=== PATIENT | female | born 1990 | race Caucasian/White ===

== ENCOUNTER 2019-11-21 08:00 | Inpatient (IN) | payer OTHER, SELFPAY ==
--- NOTE | 2019-11-18 17:45 | PCM.HPOB.BLA ---
- Problem List (1) 41 weeks gestation of Status: Acute (2) History of delivery Status: Acute History and Physical Date of Admission: 11/22/19 DATE OF SERVICE: November 18, 2019 ? PROBLEM:?history prior section, history macrosomia, 40 week gestation ? DIAGNOSIS:?as above ? PAST SURGICAL HISTORY:? PAST SURGICAL HISTORY PAST SURGICAL HISTORY Procedure Laterality Date ? DELIVERY ONLY ? ? ? I&D ABSC; COMPL OR MULTI ? ? ? Right hipo strep abcsess ? PAST SURGICAL HISTORY OF ? ? ? 2 left knee and 1 right knee surgery ? PAST SURGICAL HISTORY OF ? ? ? left ankle surgery ? TONSILLECTOMY HX ? ? ? PAST MEDICAL HISTORY:? PAST MEDICAL HISTORY PAST MEDICAL HISTORY Diagnosis Date ? Factor V Leiden (HCC) ? ? H/O cardiac arrhythmia ? ? when she runs only- has cardiac appt 05/13/2019 ? TB lung, latent ? ? Riframpin treatment completed 02/12/2019 ? SUBJECTIVE:?No ctx, vb, lof. Good FM ? SOCIAL HISTORY:? SOCIAL HISTORY Social History ? Tobacco Use ? Smoking status: Never Smoker ? Smokeless tobacco: Never Used Substance Use Topics ? Alcohol use: Not Currently ? Drug use: Not Currently ? ALLERGIES ALLERGIES No Known Allergies ? Current Outpatient Medications on File Prior to Visit Medication Sig ? METOPROLOL TARTRATE ORAL Take 25 mg by mouth. ? Wbkyhhqf-Dq-Xvd-Fe-FA ( VITAMIN) tab Take 1 tablet by mouth. No current facility-administered medications on file prior to visit.? ? OBJECTIVE: ? VITALS:? BP 102/68 ? Wt 241 lb 6.4 oz (109.5 kg) ? LMP 02/16/2019 (Exact Date) ? BMI 34.64 kg/m? ? HEENT: ?Normocephalic, atraumatic, Mucus membranes moist without lesions. ? NECK: ???Soft and Supple. ?No adenopathy , thyromegaly or bruits. ? SKIN: No lesions. ? CHEST: Clear to auscultation. ?No wheezes or rales. ?Good air exchange. ? HEART: Regular rate and rhythm ?No S3 or S4. ?No gallops or rubs. ? BACK: Nontender with no CVA tenderness. ? ABDOMEN: Soft, non-tender, non-distended, no masses, no hepatosplenomegaly. ? LOWER EXTREMITIES: There was no pitting edema, no palpable cords and no skin changes. ? ? ? ASSESSMENT:?Plan for repeat section at 41 wk gestation ? PLAN: 1) The rationale for the proposed surgery was discussed in addition to risks, benefits, and alternatives. ?General pre- and post-operative care was reviewed. ?Questions were answered. ?After discussion, the patient indicated a desire to proceed with the planned surgery. ? Mariam Snyder,?DO
[2019-11-21] VITALS (17 sets, daily range): BP systolic 99–118; BP diastolic 43–63; PULSE 52–87; RESP 14–18; TEMP 36.3–37.1; O2SAT 95–100; BMI 34.6
[2019-11-21] MEDS: Lactated Ringers 1,000 ML 999 ML IV (08:15)
[2019-11-21 08:44] LABS: Absolute Neutrophil Count 9.5 X10^3/uL (2.0-7.7); Basophil# 0.02 X10^3/uL; Basophil% 0.2 % (0-1); Eosinophil# 0.04 X10^3/uL; Eosinophils% 0.3 % (0-5); Hematocrit 29.6 % (37-47); Hemoglobin 9.7 g/dL (12.0-15.0); Lymphocyte % 15.8 % (19-41); Mean Corp Hgb Conc 32.8 g/dL (32-36); Mean Corpuscular Hgb 29.4 pg (27.0-32.0); Mean Corpuscular Volume 89.7 fL (81-99); Mean Platelet Vol. 10.6 fl (6.2-12.0); Monocyte# 0.35 X10^3/uL; Monocyte% 2.9 % (0-10); NRBC Flagged by Analyzer 0 % (0-5); Neutrophil # 9.52 X10^3/uL (2.7-7.7); Neutrophil % 79.2 % (47-70); Platelet Count 241 K/mm3 (150-450); RBC Distribution Width CV 13.3 % (11.6-14.6); RBC Distribution Width SD 43.3 fl (35.1-43.9)
[2019-11-21] MEDS: Acetaminophen 500 MG Tablet 1000 MG PO ×3 (09:10→21:51)
[2019-11-21] MEDS: Lactated Ringers 1,000 ML 150 ML IV (09:16)
[2019-11-21] MEDS: Sodium Citrate/Citric Acid 30 ML UDC PO (11:36)
[2019-11-21] MEDS: Cefazolin 2 GM in 0.9% Normal Saline 100 ML IV (11:42)
--- NOTE | 2019-11-21 12:23 | OP.PCM_ITS ---
Delivery Classification: Scheduled Final KATIANA: 11/16/19 Final KATIANA Source: US <20 weeks Gestational age: 40 Weeks and 5 Days manager women: Don Sherman Type of Anesthesia:: Spinal Special Medications: duramorph Implants Used: none Date of Procedure: 11/21/19 Pre-Operative Diagnosis: 40 w 5 days, previous Post-Operative Diagnosis: same Description of Procedure: The patient was taken to the operating room. She was prepped and draped in the dorsal supine position with a leftward tilt. A Pfannenstiel skin incision was made approximately 2 cm above the symphysis pubis and carried through to underlying layer fascia with the scalpel. The fascia was incised incised in the midline and extended laterally with the John scissors. The fascia was dissected off the rectus muscles with blunt and sharp dissection. The rectus muscles were in the midline and the peritoneum was entered bluntly. The peritoneal incision was stretched and the bladder blade was placed. The uterine incision was made in a low transverse fashion with the scalpel and extended superiorly and inferiorly with blunt dissection. The amniotic membranes were ruptured bluntly and clear amniotic fluid returned. The infant's head was brought to the incision in the flexed position and delivered without difficulty. The remainder of the was delivered with gentle traction and fundal pressure in the standard fashion. The mouth and nares were bulb suct ioned. The cord was clamped and cut as the was stimulated. Cord clamping was delayed. The infant was handed off to the waiting nursing staff. The placenta was delivered with fundal massage and gentle traction in the standard fashion. The uterus was exteriorized and cleared of all clots and debris. The cervix was dilated with a ring forcep. The uterine incision was closed with #1 Vicryl in a running locked fashion. A second layer of the same suture was used in an imbricating fashion. The incision was examined and was found to be hemostatic. The uterus was placed back into the peritoneal cavity and hemostasis was again confirmed. The rectus muscles were examined and any bleeding was Bovie cauterized. The surgical teams outer gloves were then changed. The parietal peritoneum and rectus muscles were closed en bloc with an 0 Vicryl running suture. The rectus fascia was examined and any bleeding was Bovie cauterized and the rectus fascia was closed with 1 Vicryl suture in a running standard fashion. The subcutaneous tissue was examining and any bleeding was Bovie cauterized. The subcutaneous tissue was reapproximated with 3-0 Vicryl suture. The skin was closed in a subcuticular fashion by the MARKLOGIC DEVELOPER with me present in the labor and delivery suite. I performed the remainder of the procedure with assistance. All sponge, lap, and needle counts were correct. The patient was taken to her room for recovery in a stable condition. Amniotic Membrane Rupture Type: Artificial Amniotic Fluid Description: Clear Placenta Disposition: [facility] Drain: Newman to straight drain Fluids Replaced: 1000 Cord Entanglement: None Cord Vessel Description: 3 Vessels Esitmated Blood Loss (ml): 800 Gender: Male - ESTEFANIA (1 minute): 8 (5 minute): 9 Delayed cord clamping: Yes Antibiotic Given: Ancef 2 grams IV x1 - Admit VTE Documentation VTE Present on Admission: No VTE Mechan Device Prophylaxis: SCD's VTE Pharm Prophylaxis ordered?: Yes
[2019-11-21] MEDS: Oxytocin 30 units/NS 500 ml 30 UNITS/500 ML IV.SOLN 167 UNITS IV (12:54)
[2019-11-21] MEDS: Lactated Ringers 1,000 ML 100 ML IV (16:03)
[2019-11-21] MEDS: 0.9% Saline Lock 10 ML Syringe IV (17:39)
[2019-11-21] MEDS: Ketorolac 30 MG/ML Syringe IV (17:39)
[2019-11-22] MEDS: Ketorolac 30 MG/ML Syringe IV ×3 (00:11→12:54)
[2019-11-22] MEDS: 0.9% Saline Lock 10 ML Syringe IV ×2 (00:11→06:22)
[2019-11-22] MEDS: Enoxaparin 40 MG/0.4 ML Syringe SC (00:11)
[2019-11-22 00:26] VITALS: BP 102/45; PULSE 59; RESP 16; TEMP 36.3; O2SAT 98
[2019-11-22] MEDS: Acetaminophen 500 MG Tablet 1000 MG PO ×3 (03:37→17:42)
[2019-11-22 03:38] VITALS: BP 101/43; PULSE 54; RESP 16; O2SAT 98
[2019-11-22 06:19] LABS: Hematocrit 28.5 % (37-47); Hemoglobin 9.2 g/dL (12.0-15.0); Mean Corp Hgb Conc 32.3 g/dL (32-36); Mean Corpuscular Hgb 29.3 pg (27.0-32.0); Mean Corpuscular Volume 90.8 fL (81-99); Mean Platelet Vol. 10.2 fl (6.2-12.0); Platelet Count 213 K/mm3 (150-450); RBC Distribution Width CV 13.4 % (11.6-14.6); RBC Distribution Width SD 43.4 fl (35.1-43.9); Red Blood Count 3.14 M/mm3 (4.2-5.4); White Blood Count 17.3 K/mm3 (4.4-11.0)
--- NOTE | 2019-11-22 08:25 | PCM.PN.OB ---
Subjective: Patient seen at bedside sitting up in chair at bedside. Feeling good. Ambulating and passing flatus. Lochia is mild. going well. Patient requesting discharge home today. - Physical Exam Vitals/I&O's: Vital Signs Temp Pulse Resp BP Pulse Ox 97.3 F L 54 L 16 101/43 L 98 11/22/19 00:26 11/22/19 03:38 11/22/19 03:38 11/22/19 03:38 11/22/19 03:38 Oxygen Delivery Method Room Air Weight: 241 lb 6.499 oz Body Mass Index (BMI) 34.6 Intake and Output for Last 24 Hours 11/20/19 11/21/19 11/22/19 23:59 23:59 23:59 Intake Total 2900 / 2900 Output Total 700 / 700 1700 / 1700 Balance 2200 / 2200 -1700 / -1700 General: Alert HEENT: Atraumatic Oral: Moist Mucosa Lungs: Normal air movement Cardiovascular: Regular rate Abdomen: Soft, Non Tender, Passing Flatus Extremities: No Calf Tenderness Skin: No rashes Neurological: Cranial nerves II-XII grossly intact Psych/Mental Status: Normal Affect Laboratory Results 11/21/19 08:15: WBC 12.0 H, RBC 3.30 L, Hgb 9.7 L, Hct 29.6 L, MCV 89.7, MCH 29.4, MCHC 32.8, RDW Std Deviation 43.3, RDW Coeff of Anand 13.3, Plt Count 241, MPV 10.6, Immature Gran % (Auto) 1.600 H, Neut % (Auto) 79.2 H, Lymph % (Auto) 15.8 L, Casey % (Auto) 2.9, Eos % (Auto) 0.3, Baso % (Auto) 0.2, Absolute Neuts (auto) 9.5 H, Absolute Lymphs (auto) 1.90, Nucleated RBC % 0 11/21/19 08:15: Blood Type O POSITIVE, Antibody Screen NEGATIVE 11/22/19 06:10: WBC 17.3 H, RBC 3.14 L, Hgb 9.2 L, Hct 28.5 L, MCV 90.8, MCH 29.3, MCHC 32.3, RDW Std Deviation 43.4, RDW Coeff of Anand 13.4, Plt Count 213, MPV 10.2 Current Medications Acetaminophen (Tylenol) 1,000 mg PO Q6H [facility] Last Admin: 11/22/19 03:37 Dose: 1,000 mg Documented by: Bisacodyl (Dulcolax) 10 mg RECTAL UD PRN PRN Reason: If no BM Diphenhydramine HCl (Benadryl) 25 mg PO Q6H PRN PRN PRN Reason: ITCHING Stop: 11/22/19 12:49 Enoxaparin Sodium (Lovenox) 40 mg SC DAILY@2200 [facility] Last Admin: 11/22/19 00:11 Dose: 40 mg Documented by: Hydrocortisone (Hytone) 1 applic TOPICAL TID PRN PRN; Protocol PRN Reason: Discomfort Lactated Ringer's () 1,000 mls @ 100 mls/hr IV .Q10H [facility] Last Admin: 11/21/19 22:36 Dose: Not Given Documented by: Naloxone HCl 4 mg/ Dextrose 504 mls @ 0 mls/hr IV .Q0M PRN; Protocol PRN Reason: Respiratory depression Naloxone HCl 4 mg/ Dextrose 504 mls @ 0 mls/hr IV .Q0M PRN; Protocol PRN Reason: To maintain Resp. rate >10 Ketorolac Tromethamine (Toradol (Bkc)) 30 mg IV Q6H [facility] Stop: 11/22/19 12:01 Last Admin: 11/22/19 06:18 Dose: 30 mg Documented by: Methylergonovine Maleate (Methergine) 0.2 mg IM X1 PRN PRN Reason: Uterine Atony Naloxone HCl (Narcan) 0.02 mg IV Q1M PRN PRN Reason: RR <10 and pt unresponsive Naloxone HCl (Narcan) 0.02 mg IV Q1M PRN PRN Reason: RR< 10 AND PT UNRESPONSIVE Naproxen (Naprosyn) 500 mg PO Q8H [facility] Ondansetron HCl (Zofran) 4 mg IV Q4H PRN PRN PRN Reason: Nausea Oxycodone HCl (Oxyir) 5 - 10 mg PO Q4H PRN PRN PRN Reason: Pain Score 4-10/10 Prochlorperazine Edisylate (Compazine Iv) 10 mg IV Q6H PRN PRN PRN Reason: NAUSEA Senna/Docusate Sodium (Senokot-S, Kelly-Colace) 0 tablet PO DAILY [facility] Simethicone (Mylicon) 80 mg PO PCHS PRN PRN Reason: Indigestion/stomach pain Sodium Chloride () 5 - 15 ml IV UD PRN PRN Reason: SALINE FLUSH Last Admin: 11/22/19 06:22 Dose: 15 ml Documented by: Medical Necessity - Tobacco Use Smoking Status: Never smoker Assessment/Plan All Active Problems 41 weeks gestation of (Acute) History of delivery (Acute) Post-op day 2 repeat c/s Pain control Routine care Anticipate discharge home
--- NOTE | 2019-11-22 08:32 | DCINST_ITS ---
Discharge Diet: No Restrictions Discharge Activity: [address] - After 2 weeks May resume sexual activity in: 6-8 weeks Suture Line Care: Avoid Pulling/Pushing Cleanse incision/area with: Soap & Water Additional Instructions: If you experience any of the following, contact your healthcare provider. * Bleeding that soaks a pad every hour for 2 hours * Fever 100.4 or higher * Unrelieved incision or abdominal pain * Swelling, redness, discharge or bleeding from your incision or episiotomy site * Your incision begins to separate * Problems urinating (including inability to urinate or burning while urinating). * Visual changes * Severe headache * Flu-like symptoms * Pain or redness in one of both of your breasts * Pain, warmth, tenderness or swelling in your legs, especially the calf area * Frequent nausea and vomiting * Symptoms of depression or anxiety If you experience any of the following, call 911 or go to the nearest Emergency Room. * Chest pain * Problems breathing * Seizure activity * Partial or complete paralysis of a body part, slurred speech, weakness or drooping of the face, or a sudden inability to walk or hold your balance Allergies/Adverse Reactions: Allergies No Known Allergies Allergy (Verified 11/21/19 08:16) Medications to take at Discharge Metoprolol Tartrate 25 mg PO BID 11/21/19 Vits [Prenatabs FA ] 1 tab PO DAILY 11/21/19 Senna/Docusate Sodium [Senokot-S] 1 tab PO DAILY PRN tablet 11/22/19 Follow-Up: Call to make an appointment with your doctor for an incision check in 1-2 weeks. You will also need a 6 week post- follow up appointment. Test results from this visit will be discussed in further detail at your follow- up appointment, if applicable. [facility] - Proposed Discharge Date: 11/22/19
--- NOTE | 2019-11-22 08:32 | PCM.DCCSEC ---
Discharge Diet: No Restrictions Discharge Activity: [address] - After 2 weeks May resume sexual activity in: 6-8 weeks Suture Line Care: Avoid Pulling/Pushing Cleanse incision/area with: Soap & Water Additional Instructions: If you experience any of the following, contact your healthcare provider. Bleeding that soaks a pad every hour for 2 hours Fever 100.4 or higher Unrelieved incision or abdominal pain Swelling, redness, discharge or bleeding from your incision or episiotomy site Your incision begins to separate Problems urinating (including inability to urinate or burning while urinating). Visual changes Severe headache Flu-like symptoms Pain or redness in one of both of your breasts Pain, warmth, tenderness or swelling in your legs, especially the calf area Frequent nausea and vomiting Symptoms of depression or anxiety If you experience any of the following, call 911 or go to the nearest Emergency Room. Chest pain Problems breathing Seizure activity Partial or complete paralysis of a body part, slurred speech, weakness or drooping of the face, or a sudden inability to walk or hold your balance Allergies/Adverse Reactions: Allergies No Known Allergies Allergy (Verified 11/21/19 08:16) Medications to take at Discharge Metoprolol Tartrate 25 mg PO BID 11/21/19 Vits [Prenatabs FA ] 1 tab PO DAILY 11/21/19 Senna/Docusate Sodium [Senokot-S] 1 tab PO DAILY PRN tablet 11/22/19 Follow-Up: Call to make an appointment with your doctor for an incision check in 1-2 weeks. You will also need a 6 week post- follow up appointment. Test results from this visit will be discussed in further detail at your follow-up appointment, if applicable. [facility] - Proposed Discharge Date: 11/22/19
--- NOTE | 2019-11-22 08:34 | DS.PCM_ITS ---
Discharge Date and Diagnosis Date of Admission: 11/21/19 Date of Discharge: 11/22/19 Hospital Course and Treatment Summary of Care Provided: The patient is a 29 year old F for scheduled repeat c/s. Course of stay is uncomplicated. ] - Physical Exam Vitals/I&O's: Vital Signs Temp Pulse Resp BP Pulse Ox 97.3 F L 54 L 16 101/43 L 98 11/22/19 00:26 11/22/19 03:38 11/22/19 03:38 11/22/19 03:38 11/22/19 03:38 Oxygen Delivery Method Room Air Weight: 241 lb 6.499 oz Body Mass Index (BMI) 34.6 Intake and Output for Last 24 Hours 11/20/19 11/21/19 11/22/19 23:59 23:59 23:59 Intake Total 2900 / 2900 Output Total 700 / 700 1700 / 1700 Balance 2200 / 2200 -1700 / -1700 Laboratory Results 11/21/19 08:15: WBC 12.0 H, RBC 3.30 L, Hgb 9.7 L, Hct 29.6 L, MCV 89.7, MCH 29.4, MCHC 32.8, RDW Std Deviation 43.3, RDW Coeff of Anand 13.3, Plt Count 241, MPV 10.6, Immature Gran % (Auto) 1.600 H, Neut % (Auto) 79.2 H, Lymph % (Auto) 15.8 L, [place] % (Auto) 2.9, Eos % (Auto) 0.3, Baso % (Auto) 0.2, Absolute Neuts (auto) 9.5 H, Absolute Lymphs (auto) 1.90, Nucleated RBC % 0 11/21/19 08:15: Blood Type O POSITIVE, Antibody Screen NEGATIVE 11/22/19 06:10: WBC 17.3 H, RBC 3.14 L, Hgb 9.2 L, Hct 28.5 L, MCV 90.8, MCH 29.3, MCHC 32.3, RDW Std Deviation 43.4, RDW Coeff of Anand 13.4, Plt Count 213, MPV 10.2 Current Medications Acetaminophen (Tylenol) 1,000 mg PO Q6H [facility] Last Admin: 11/22/19 03:37 Dose: 1,000 mg Documented by: Bisacodyl (Dulcolax) 10 mg RECTAL UD PRN PRN Reason: If no BM Diphenhydramine HCl (Benadryl) 25 mg PO Q6H PRN PRN PRN Reason: ITCHING Stop: 11/22/19 12:49 Enoxaparin Sodium (Lovenox) 40 mg SC DAILY@2200 [facility] Last Admin: 11/22/19 00:11 Dose: 40 mg Documented by: Hydrocortisone (Hytone) 1 applic TOPICAL TID PRN PRN; Protocol PRN Reason: Discomfort Lactated Ringer's () 1,000 mls @ 100 mls/hr IV .Q10H [facility] Last Admin: 11/21/19 22:36 Dose: Not Given Documented by: Naloxone HCl 4 mg/ Dextrose 504 mls @ 0 mls/hr IV .Q0M PRN; Protocol PRN Reason: Respiratory depression Naloxone HCl 4 mg/ Dextrose 504 mls @ 0 mls/hr IV .Q0M PRN; Protocol PRN Reason: To maintain Resp. rate >10 Ketorolac Tromethamine (Toradol (Bkc)) 30 mg IV Q6H [facility] Stop: 11/22/19 12:01 Last Admin: 11/22/19 06:18 Dose: 30 mg Documented by: Methylergonovine Maleate (Methergine) 0.2 mg IM X1 PRN PRN Reason: Uterine Atony Naloxone HCl (Narcan) 0.02 mg IV Q1M PRN PRN Reason: RR <10 and pt unresponsive Naloxone HCl (Narcan) 0.02 mg IV Q1M PRN PRN Reason: RR< 10 AND PT UNRESPONSIVE Naproxen (Naprosyn) 500 mg PO Q8H [facility] Ondansetron HCl (Zofran) 4 mg IV Q4H PRN PRN PRN Reason: Nausea Oxycodone HCl (Oxyir) 5 - 10 mg PO Q4H PRN PRN PRN Reason: Pain Score 4-10/10 Prochlorperazine Edisylate (Compazine Iv) 10 mg IV Q6H PRN PRN PRN Reason: NAUSEA Senna/Docusate Sodium (Senokot-S, Kelly-Colace) 0 tablet PO DAILY [facility] Simethicone (Mylicon) 80 mg PO PCHS PRN PRN Reason: Indigestion/stomach pain Sodium Chloride () 5 - 15 ml IV UD PRN PRN Reason: SALINE FLUSH Last Admin: 11/22/19 06:22 Dose: 15 ml Documented by: Discharge Diet: No Restrictions Discharge Activity: [address] - After 2 weeks May resume sexual activity in: 6-8 weeks Suture Line Care: Avoid Pulling/Pushing Cleanse incision/area with: Soap & Water Home Medications: Medications to take at Discharge Metoprolol Tartrate 25 mg PO BID 11/21/19 Vits [Prenatabs FA ] 1 tab PO DAILY 11/21/19 Senna/Docusate Sodium [Senokot-S] 1 tab PO DAILY PRN tablet 11/22/19 [facility] Physician: [facility] [Primary Care Provider] - Medical Necessity - Tobacco Use Smoking Status: Never smoker Meaningful Use Info Meaningful Use Diagnoses (Choose all that apply): None applicable
[2019-11-22 08:38] VITALS: BP 100/53; PULSE 59; RESP 18; TEMP 36.7; O2SAT 98
[2019-11-22] MEDS: Senna/Docusate Sodium 1 Tablet PO (10:38)
[2019-11-22 12:20] VITALS: BP 128/64; PULSE 69; RESP 16; TEMP 36.7
[2019-11-22 16:45] VITALS: BP 108/62; PULSE 70; RESP 14; TEMP 36.4
[2019-11-22] MEDS: Naproxen 250 MG Tablet 500 MG PO (17:42)
== END 2019-11-22 18:00 | disposition home or self-care (01) | DRG 787 ==
PROVIDERS: Admitting Provider Obstetrics & Gynecology; Referring Provider Obstetrics & Gynecology; Visit Provider Obstetrics & Gynecology
PROC: 10D00Z1 Extraction of Products of Conception, Low, Open Approach (ICD-10-PCS; CPT 59514; principal; 2019-11-21 10:15)
DX: O48.0 Post-term pregnancy (principal); O99.12 Other diseases of the blood and blood-forming organs and certain disorders involving the immune mechanism complicating childbirth; D68.51 Activated protein C resistance; O34.219 Maternal care for unspecified type scar from previous cesarean delivery; Z3A.41 41 weeks gestation of pregnancy; Z37.0 Single live birth
CPT/HCPCS: 85025; 85027; 86850; 86900; 86901; 87635; 94799; 99218; J7120; A4216; G0378; J2405; U0003

== ENCOUNTER → 2023-09-08 | Outpatient (CLI) | payer OTHER, SELFPAY ==
[2023-09-08 10:37] LABS: Absolute Lymphocyte Count 2.05 X10^3/uL (0.83-4.51); Basophil# 0.01 X10^3/uL; Basophil% 0.1 % (0-1); Eosinophil# 0.03 X10^3/uL; Eosinophils% 0.3 % (0-5); Hematocrit 36.6 % (37-47); Hemoglobin 12.2 g/dL (12.0-15.0); Lymphocyte # 2.05 X10^3/ul (0.83-4.51); Lymphocyte % 19.7 % (19-41); Mean Corp Hgb Conc 33.3 g/dL (32-36); Mean Corpuscular Hgb 31.1 pg (27.0-32.0); Mean Corpuscular Volume 93.4 fL (81-99); Mean Platelet Vol. 10.4 fl (6.2-12.0); Monocyte% 2.9 % (0-10); NRBC Flagged by Analyzer 0 % (0-5); Neutrophil # 7.99 X10^3/uL (2.7-7.7); Neutrophil % 76.8 % (47-70); Platelet Count 243 K/mm3 (150-450); RBC Distribution Width CV 12.4 % (11.6-14.6); RBC Distribution Width SD 42.6 fl (35.1-43.9); Red Blood Count 3.92 M/mm3 (4.2-5.4); White Blood Count 10.4 K/mm3 (4.4-11.0)
[2023-09-08 12:32] LABS: HIV - WCH Non-Reactive (Nonreactive); Hepatitis B Surface Antigen Non-Reactive (Nonreactive); Hepatitis C Antibody Non-Reactive (Nonreactive); Rubella IgG Reactive (Nonreactive); Syphilis Antibodies Non-reactive
[2023-09-11 21:07] LABS: Chlamydia By Nucleic Acid AMP Negative (Negative); Gonococcus By Nucleic Acid AMP Negative (Negative)
== END | disposition home or self-care (01) ==
PROVIDERS: Referring Provider Advanced Practice Midwife; Visit Provider Advanced Practice Midwife
DX: O09.90 Supervision of high risk pregnancy, unspecified, unspecified trimester (principal); D68.51 Activated protein C resistance; Z3A.00 Weeks of gestation of pregnancy not specified
CPT/HCPCS: 36415; 85025; 86703; 86762; 86780; 86803; 86850; 86900; 86901; 87086; 87340; 87491; 87591

== ENCOUNTER → 2024-01-24 | Outpatient (CLI) | payer OTHER, SELFPAY ==
[2024-01-24 09:12] LABS: Absolute Lymphocyte Count 2.12 X10^3/uL (0.83-4.51); Absolute Neutrophil Count 10.6 X10^3/uL (2.0-7.7); Basophil# 0.03 X10^3/uL; Basophil% 0.2 % (0-1); Eosinophil# 0.04 X10^3/uL; Eosinophils% 0.3 % (0-5); Hematocrit 33.1 % (37-47); Lymphocyte # 2.12 X10^3/ul (0.83-4.51); Lymphocyte % 15.9 % (19-41); Mean Corp Hgb Conc 33.2 g/dL (32-36); Mean Corpuscular Hgb 30.9 pg (27.0-32.0); Mean Platelet Vol. 10.4 fl (6.2-12.0); Monocyte# 0.41 X10^3/uL; Monocyte% 3.1 % (0-10); NRBC Flagged by Analyzer 0 % (0-5); Neutrophil # 10.59 X10^3/uL (2.7-7.7); Neutrophil % 79.6 % (47-70); Platelet Count 214 K/mm3 (150-450); RBC Distribution Width CV 12.4 % (11.6-14.6); RBC Distribution Width SD 42.5 fl (35.1-43.9); Red Blood Count 3.56 M/mm3 (4.2-5.4); White Blood Count 13.3 K/mm3 (4.4-11.0)
[2024-01-24 09:35] LABS: Glucose Challenge Gest 1H 50g 102 mg/dL (70-140)
[2024-01-30 17:07] LABS: HIV 1/0/2 SCREEN Non Reactive (Non Reactive); Syphilis Antibodies Non Reactive (Non Reactive)
== END | disposition home or self-care (01) ==
PROVIDERS: Referring Provider Obstetrics & Gynecology; Visit Provider Obstetrics & Gynecology
DX: O09.92 Supervision of high risk pregnancy, unspecified, second trimester (principal); Z3A.00 Weeks of gestation of pregnancy not specified; Z13.1 Encounter for screening for diabetes mellitus
CPT/HCPCS: 36415; 82950; 85025; 86703; 86780

== ENCOUNTER → 2024-03-19 | Outpatient (CLI) | payer OTHER, SELFPAY | END | disposition home or self-care (01) | LOC: BWCLAB 11:38 | PROVIDERS: Referring Provider Obstetrics & Gynecology; Visit Provider Obstetrics & Gynecology | DX: O09.92 Supervision of high risk pregnancy, unspecified, second trimester (principal); Z3A.00 Weeks of gestation of pregnancy not specified | CPT/HCPCS: 87081 ==

== ENCOUNTER 2024-04-09 05:15 | Inpatient (IN) | payer OTHER, SELFPAY ==
[2024-04-09] VITALS (21 sets, daily range): BP systolic 99–123; BP diastolic 52–84; PULSE 56–92; RESP 16–18; TEMP 36.3–36.8; O2SAT 96–100; BMI 34.8
--- NOTE | 2024-04-09 | FALS_PTH ---
PATIENT: INGRID GLEASON LOC: WP U#:[id number] AGE/SX: 33/F ROOM: WP007 RE04/09/[address]: Dr. Jen Curran DO : 1990 BED: 1 DIS: 04/11/2024 SPEC #: [id number] RECD: 04/09/24 11:59 STATUS: YOUNG CORA #: [id number] RADHA: 04/09/24 00:[address]: Jen Curran DEPT: SURGICAL PATHOLOGY RECD BY: Arthur Berumen ENTERED: 04/09/24 12:02 SP TYPE: FALL TUBES KALI DR: [facility] Tissues: Fallopian tube Procedures: Surgery Specimen Level II HEADER OPERATION: Tubal ligation PRE-OP DIAGNOSIS: Repeat section TISSUE SUBMITTED: Bilateral fallopian tubes and cyst MICROSCOPIC DIAGNOSIS Bilateral fallopian tubes and cyst, salpingectomy, cystectomy: Bilateral fallopian tubes, no pathologic diagnosis. Detached cyst - Consistent with paratubal cyst. SJ: 04/11/2024 MICROSCOPIC DESCRIPTION Slides are reviewed. GROSS DESCRIPTION Received in fixative is one container labeled with the patient's name and designated bilateral fallopian tubes - suture in right. The specimen consists of bilateral fallopian tubes including fimbrial ends. Right fallopian tube measures 10.0 cm in length and 0.6 cm in diameter and the left fallopian tube measures 10.0cm in length and 0.6cm in diameter. A small paratubal cyst is noted adjacent to the the right fallopian tube measuring 0.2cm in greatest dimension. Also present in the contianer is a detached cyst measuring 1.2 x 1.0 x 0.6cm. The cyst is bisected and filled with clear fluid. Sections reveal unremarkable cut surfaces. General Internal Medicine Physician sections are submitted in three cassettes as follows: 1- right fallopian tube and small paratubal cyst, 2- left fallopian tube, 3- detached cyst, entirely submitted. / SJ: 04/09/2024 TC:5 CPT: 97609 x2,90374
[2024-04-09] MEDS: Lactated Ringers 1,000 ML 999 ML IV (05:45)
[2024-04-09] MEDS: Acetaminophen 500 MG Tablet 1000 MG PO ×3 (05:56→18:03)
[2024-04-09] MEDS: Sodium Citrate/Citric Acid 30 ML UDC PO (06:11)
[2024-04-09 06:24] LABS: Absolute Lymphocyte Count 2.14 X10^3/uL (0.83-4.51); Absolute Neutrophil Count 10.3 X10^3/uL (2.0-7.7); Basophil# 0.02 X10^3/uL; Basophil% 0.2 % (0-1); Eosinophil# 0.05 X10^3/uL; Eosinophils% 0.4 % (0-5); Hematocrit 27.8 % (37-47); Hemoglobin 9.1 g/dL (12.0-15.0); Lymphocyte # 2.14 X10^3/ul (0.83-4.51); Lymphocyte % 16.3 % (19-41); Mean Corp Hgb Conc 32.7 g/dL (32-36); Mean Corpuscular Hgb 29.4 pg (27.0-32.0); Mean Platelet Vol. 10.4 fl (6.2-12.0); Monocyte% 3.8 % (0-10); NRBC Flagged by Analyzer 0 % (0-5); Neutrophil # 10.25 X10^3/uL (2.7-7.7); Neutrophil % 78.1 % (47-70); Platelet Count 196 K/mm3 (150-450); RBC Distribution Width CV 13.3 % (11.6-14.6); RBC Distribution Width SD 42.8 fl (35.1-43.9); Red Blood Count 3.09 M/mm3 (4.2-5.4); White Blood Count 13.1 K/mm3 (4.4-11.0)
--- NOTE | 2024-04-09 07:05 | HP.PCM.OB_ITS ---
HPI - General General Date of Admission: 04/09/24 HPI Narrative INGRID GLEASON, is a 33 y/o @ 39 weeks 0 days who presents to L&D for a repeat section. Maternal Data Information KATIANA Calculator Estimated Delivery Date Method Current WG Current Estimate 04/16/24 LMP (Certain) 39w 0d Other Estimates 04/16/24 Ultrasound #1 39w 0d PFS PFS Medical History Latent tuberculosis Home Medications ?Medication ?Instructions ?Recorded ?Last Taken ?Type metoprolol tartrate 25 mg tablet 12.5 mg PO DAILY heart arrhythmia 09/01/23 Unknown History multivitamin no.47-iron fum 27 1 cap PO DAILY 09/01/23 Unknown History mg-folate no.1 1 mg-dha 300 mg capsule (PNV-DHA) Allergy/AdvReac Type Severity Reaction Status Date / Time No Known Allergies Allergy Verified 04/09/24 05:33 Family History Mother Hypertension Grandmother Cancer, Onset Age: 35 Paternal- Ovarian Grandfather Cancer, Onset Age: 70 Paternal Lung -smoker Sister Factor V deficiency Surgical History Status post labral repair of shoulder History of delivery H/O lateral meniscus repair of right knee History of ankle surgery H/O arthroscopic knee surgery History of tonsillectomy H/O lateral meniscus repair of left knee History of hip surgery Social History adopted: No household members: spouse and children number of children: 2 current occupational status: employed current occupation: RN- [employer] current occupational exposures/hazards: No pets and animals: Yes pets and animals: dog(s) history of recent travel: Yes ([place], [place]) out of state: Yes out of country: No sexually active: Yes Smoking Status: Never smoker alcohol intake: current alcohol intake frequency: a few times a week details: Not While substance use type: does not use well-balanced diet: daily or most days caffeine: No eating out: 1-3 times/week during the past year weight has: remained stable what type of physical activity do you participate in: running, bicycling and weight training frequency: 1-2 times per week duration: 45-60 minutes/day christina/gnosticist: Zoroastrian seatbelt use: always do you feel safe at home: Yes additional social history: Myron- Law Enforcement History 5 Elective abortions Hx Para 2 Spontaneous abortions 2 Hx # Term Pregnancies Ectopic pregnancies Hx # Pregnancies Multiple births # of living children 2 Past Pregnancies Del. Date Name GA/Weeks Outcome Route Bth Weight Infant Gen Labor Lgth Anes thes ia Del Locatn Provider FOB Unknown 09/2018- chemical 4 spontaneous Unknown 11/2022 chemical 4 spontaneous 05/20/16 Salud 40 live - full term 9#9oz Female epidural [facility] Angelina Myron 11/21/19 Elijah 40 live - full term 9#4oz Male sp inal [facility] Dr.Russel Gamboa Delivery Date: 05/20/16 Last Updated by: Minerva Izaguirre failure to progress, c section Delivery Date: 11/21/19 Last Updated by: Minerva Izaguirre Rpt cs Visit Details Expected Delivery Route/Plan likely RLTCS possible TOLAC Plans Covid status: [] Flu vaccine: [] Tdap vaccine: given Rhogam: [na LARC form signed: [] movement and labor precautions reviewed. Problem list reviewed and updated with the most current plan of care details and appropriate orders placed. Relevant counseling for the gestational age provided. Continue routine care and follow up unless otherwise noted in visit notes/problem list details OB Flowsheet Initial Weight: Not Recorded Date -?-?-?-?-?-?-?-?-?-?-?-?- EGA Weight BP Urine Prot -?-?-?-?-?-?-?-?-?-?-?-?- Glucose FHR FuHt Pres Dilation -?-?-?-?-?-?-?-?-?-?-?-?- Effaced St Visit Note 09/08/23 -?-?-?-?-?-?-?-?-?-?-?-?- 8w 3d 204 lb 2 oz 125/71 -?-?-?-?-?-?-?-?-?-?-?-?- 170 -?-?-?-?-?-?-?-?-?-?-?-?- SM- CRL cons wit h LMP 10/06/23 -?-?-?-?-?-?-?-?-?-?-?-?- 12w 3d 207 lb 115/77 Negative -?-?-?-?-?-?-?-?-?-?-?-?- Negative 144 -?-?-?--?-?-?-?-?-?-?-?-?- LC- no vb/isa ng. declines afp. 11/02/23 -?-?-?-?-?-?-?-?-?-?-?-?- 16w 2d 211 lb 2 oz 114/72 Nega tive -?-?-?-?-?-?-?-?-?-?-?-?- Negative 151 -?-?-?-?-?-?-?-?-?-?-?-?- MH-No VB. Rukhsana childers. Denies concerns. 11/27/23 -?-?-?-?-?-?-?-?-?-?-?-?- 19w 6d 216 lb 127/71 Negative -?-?-?-?-?-?-?-?-?-?-?-?- Negative 150 -?-?-?-?-?-?-?-?-?-?-?-?- JV- no lof, vagi nal bleeding, or dec fm. had 2 prior sections and wants to attempt . we discussed that would need to be spontaneous labor prior to 41 weeks. she agrees with plan. 12/27/23 -?-?-?-?-?-?-?-?-?-?-?-?- 24w 1d 220 lb 110/75 Negative -?-?-?-?-?-?-?-?-?-?-?-?- Negative 150 -?-?-?-?-?-?-?-?-?-?-?-?- SM- no vb lof go od fm no regular ctx schedule cs for 04/09 if able 01/24/24 -?-?-?-?-?-?-?-?-?-?-?-?- 28w 1d 228 lb 6 oz 122/74 Nega tive -?-?-?-?-?-?-?-?-?-?-?-?- Negative 153 30 -?-?-?-?-?-?-?-?-?-?-?-?- JV- tdap and 28 week labs done today. 02/05/24 -?-?-?-?-?-?-?-?-?-?-?-?- 29w 6d 230 lb 113/71 Negative -?-?-?-?-?-?-?-?-?-?-?-?- Negative 140 30 -?-?-?-?-?-?-?-?-?-?-?-?- KW- no vb/lof/ct x. good fm. set up for repeat c/s. 02/22/24 -?-?-?-?-?-?-?-?-?-?-?-?- 32w 2d 234 lb 2 oz 119/70 Trac e -?-?-?-?-?-?-?-?-?-?-?-?- Negative 146 33 -?-?-?-?-?-?-?-?-?-?-?-?- JV- no concerns of complaints today. recommend [facility] pt [facility] 03/05/24 -?-?-?-?-?-?-?-?-?-?-?-?- 34w 0d 235 lb 120/77 Negative -?-?-?-?-?-?-?-?-?-?-?-?- Negative 140 34 -?-?-?-?-?-?-?-?-?-?-?-?- SM- no vb lof go od fm no regualr ctx 03/19/24 -?-?-?-?-?-?-?-?-?-?-?-?- 36w 0d 236 lb 6 oz 128/79 Nega tive -?-?-?-?-?-?-?-?-?-?-?-?- Negative 142 37 0 -?-?-?-?-?-?-?-?-?-?-?-?- MH-No VB, LOF. G ood FM. GBS. 03/26/24 -?-?-?-?-?-?-?-?-?-?-?-?- 37w 0d 241 lb 126/78 Negative -?-?-?-?-?-?-?-?-?-?-?-?- Negative 140 38 Cephalic 0 -?-?-?-?-?-?-?-?-?-?-?-?- JV- cephalic on ultrasound today (bedside) no complaints. planning rpt section on . 04/01/24 -?-?-?-?-?-?-?-?-?-?-?-?- 37w 6d 242 lb 2 oz 118/78 Nega tive -?-?-?-?-?-?-?-?-?-?-?-?- Negative 130 38 Cephalic 0 -?--?-?-?-?-?-?-?-?-?-?-?- SM- n ovb lof go od fm no reuglar ctx preop packet reviewed and signed consent ROS Constitutional Constitutional: Denies change in weight, fatigue, fever(s), headache(s), poor appetite or weakness Eyes Eyes: Denies blurry vision, change in vision, seeing flashes or spots in vision ENT HEENT: Denies dizziness, headache(s), loss taste/smell or sore throat Cardiovascular Cardiovascular: Denies chest pain, dizziness, dyspnea, irregular heart rhythm, leg edema, palpitations, rapid heart rate or vomiting Respiratory/Chest Respiratory/Chest: Denies chest tightness, cough, dyspnea or breast pain Gastrointestinal Gastrointestinal: Denies abdominal pain, anorexia, constipation, cramping, diarrhea, hemorrhoids, vomiting or weight changes Genitourinary Genitourinary: Denies dysuria, flank pain, genital lesions, genital pain, urinary frequency or urinary urgency Musculoskeletal Musculoskeletal: Denies back pain, difficulty walking, joint pain, limited range of motion, muscle cramps or numbness Integumentary Integumentary: Denies lesions or unusual bruising Neurologic Neurologic: Denies abnormal movements, abnormal speech, dizziness, numbness, seizure-like activity or syncope Psychiatric Psychiatric: Denies anxiety, behavioral changes, change in appetite, change in libido, cognitive impairment, confusion, depression, difficulty concentrating, hallucinations or suicidal thoughts Endocrine Endocrinology: Denies excessive sweating, polydipsia or polyuria Hematologic/Lymphatic Hematologic/Lymphatic: Denies easy bleeding, easy bruising or lymphadenopathy Allergic/Immunologic Allergic/Immunologic: Denies itchy eyes, lip swelling, seasonal rhinorrhea, rhinitis, throat swelling, tongue swelling, eczemia, wheezing or asthma Vital Signs Vital Signs Vital Signs: 04/09/24 05:29 04/09/24 05:29 04/09/24 05:48 Temperature 98.2 F Temperature Source Temporal Pulse Rate 92 92 Respiratory Rate 16 Blood Pressure 123/84 H Blood Pressure Mean 97 Blood Pressure Source Monitor Blood Pressure Position Semi-Fowlers Blood Pressure Location Left Arm Pulse Ox 97 97 Oxygen Delivery Method Room Air Weight Weight: 243 lb Body Mass Index (BMI) 34.8 Physical Exam Const alert, oriented x3, no apparent distress and healthy appearing General Appearance: cooperative; Negative for anxious HEENT normocephalic Face and Sinus: normal facial exam Eyes EOMs intact bilaterally and no scleral icterus General Eye: normal appearance of both eyes Neck full ROM and supple Lymph Lymphatic: no lymphadenopathy noted Chest Chest: abnormal inspection of the chest Resp normal respiratory effort Effort and Inspection: able to speak in complete sentences Cardio regular rate GI soft to palpation and non-tender Inspection: gravid Palpation: soft; Negative for tender Back/Spine no CVA tenderness Extremity normal to inspection, full ROM and no clubbing, cyanosis or edema General Extremity: Negative for calf tenderness or edema Skin Lesions: no lesions Rashes: no rashes Psych mental status grossly normal Labs Labs Labs: Blood Type O POSITIVE Antibody Screen NEGATIVE Hct 27.8 % (37-47) L Hgb 9.1 g/dL (12.0-15.0) L Syphilis Total Ab Non Reactive (Non Reactive) Rubella IgG Antibody Reactive (Nonreactive) Hep Bs Antigen Non-Reactive (Nonreactive) Hepatitis C Antibody Non-Reactive (Nonreactive) Chlamydia DNA (NINI) Negative (Negative) N.gonorrhoeae DNA (NINI) Negative (Negative) HIV 1&2 Antibody Non Reactive (Non Reactive) Glucose 1 Hr 50 gm 102 mg/dL (70-140) Rhogam given: No Assessment & Plan (1) History of 2 sections: COMMENT: likely desires repeat unless active labor. reviewed TOLAC risks. c/s 04/09/24 (2) Irregular heart beat: COMMENT: metoprolol 12.5mg, released from cardio in past. stable. nl echo last done in 2020 (3) Supervision of high-risk : QUALIFIERS: Trimester: third trimester Qualified Code(s): O09.93 - Supervision of high risk , unspecified, third trimester COMMENT: PRR,, KATIANA 04/16/24, PC Elijah Mcgrath Myron (4) : QUALIFIERS: Weeks of gestation: 37 weeks Qualified Code(s): Z3A.37 - 37 weeks gestation of COMMENT: Neg GBS. discussed genetic & carrier testing-declined. nl anatomy (5) Factor V Leiden: COMMENT: hetero, sister had clot on ocp. reviewed indications and will anticoagulate PLAN: Plan After discussing the patient's diagnosis and treatment plan options, patient wishes to proceed with surgical management. I have discussed with the patient the risks, benefits, and alternatives of the procedure which include but are not limited to risks of anesthesia, bleeding, infection, possible damage to bowel, bladder, or surrounding vasculature which could lead to additional surgery to evaluate any complications. Patient agrees to procedure and wishes to proceed. ACOG/uptodate references given for additional information regarding procedure.
--- NOTE | 2024-04-09 07:20 | PCM.DC ---
Discharge Instructions Diet Discharge Diet: No restrictions DC O2, CPAP, BIPAP needs Home O2 Discharge instructions: No Dressing / Incision Discharge Activity: May Not Drive (for 2 weeks or while taking narcotic pain medications.), May Shower and May Take a Tub Bath (in 7 days.) May resume sexual activity in: 4-6 weeks Weight Bearing Status: Full weight bearing Lifting Restrictions: 20 pounds Dressing / Incision Call your doctor if your incision/area has: Continuous Slow Oozing, Sudden Increased Bleeding, Increased Pain/ Swelling, Increased Redness and Foul Smelling Discharge Call your doctor if you observe: Fever of 101 or Higher and Using more than 1 pad per hour Suture Line Care: Avoid Pulling/Pushing and Avoid Pinching/Bending Cleanse incision/area with: Soap & Water and Keep Dressing Clean & Dry Follow Up Care Please Follow Up With: Jen Curran DO When: Call [phone] to make an appointment for an incision check in 1-2 weeks. Test Results: Test results from this visit will be discussed in further detail at your follow-up appointment, if applicable. Discharge Plan Admission Admit Date/Time: 04/09/24 05:15 Primary Reason for Your Visit: SECTION Attending Provider: Jen Curran Primary Care Provider: [facility],[place] Discharge Orders/Prescriptions Prescriptions: New enoxaparin [Lovenox] 40 mg/0.4 mL syringe 40 mg subcut DAILY 42 Days Qty: 16.8 0RF ibuprofen 800 mg tablet 800 mg PO Q8H PRN (Reason: pain) Qty: 30 0RF oxycodone-acetaminophen [Percocet] 5-325 mg tablet 1 tab PO Q4H PRN (Reason: pain) 7 Days Qty: 20 0RF Rx Instructions: 1-2 tabs q 4 hrs as needed for pain Continued PNV-DHA 27 mg iron-1 mg -300 mg capsule 1 cap PO DAILY metoprolol tartrate 25 mg tablet 12.5 mg PO DAILY Referrals / Follow Up: [facility] [Primary Care Provider] - Disposition Disposition (needs filled in before D/C Order can be placed): Home, Self Care
[2024-04-09] MEDS: Cefazolin 2 GM in Syringe IV (07:27)
--- NOTE | 2024-04-09 08:24 | EX.PCM.OBRPT ---
Assessment & Plan (1) History of 2 sections: COMMENT: likely desires repeat unless active labor. reviewed TOLAC risks. c/s 04/09/24 (2) Irregular heart beat: COMMENT: metoprolol 12.5mg, released from cardio in past. stable. nl echo last done in 2020 (3) Supervision of high-risk : QUALIFIERS: Trimester: third trimester Qualified Code(s): O09.93 - Supervision of high risk , unspecified, third trimester COMMENT: PRR,, KATIANA 04/16/24, Elijah Castellano Myron (4) : QUALIFIERS: Weeks of gestation: 37 weeks Qualified Code(s): Z3A.37 - 37 weeks gestation of COMMENT: Neg GBS. discussed genetic & carrier testing-declined. nl anatomy (5) Factor V Leiden: COMMENT: hetero, sister had clot on ocp. reviewed indications and will anticoagulate Maternal Data Information KATIANA Calculator Estimated Delivery Date Method Current WG Current Estimate 04/16/24 LMP (Certain) 39w 0d Other Estimates 04/16/24 Ultrasound #1 39w 0d Final KATIANA: 04/16/24 Final KATIANA Source: LMP Gestational age: 39 weeks 0 days Operative Report (OB) Cecarean Details Procedure Type: bilateral salpingectomy Date of Procedure: 04/09/24 Procedure Start Time: :37 Procedure Stop Time: 08:18 Time of Delivery: 07:43 Pre-Operative Diagnosis: Repeat Elective and Desires elective sterilization Post-Operative Diagnosis: Same as Pre-operative diagnosis Type of Anesthesia: Spinal Antibiotic Given: Ancef 2 grams IV x1 Drain: Newman to straight drain Estimated Blood Loss: 500cc Findings Description of surgery: The patient was brought to the operating room, spinal anesthesia was found to be adequate. She was prepped and draped in the normal sterile fashion and was placed in a dorsal supine position with a leftward tilt. Pfannenstiel skin incision was made with a scalpel and carried through to the underlying layers. The fascia was nicked in the midline and extended laterally using John scissors. The anterior aspect of the fascia was grasped with Juan clamps and the underlying rectus muscles dissected off using the Metzenbaum scissors. The rectus muscles were in the midline. Peritoneum was entered sharply. The uterus was identified and a bladder blade was inserted into the abdomen. Bladder flap was created off the uterus using Metzenbaum scissors. A transverse incision was made with a scalpel and extended laterally manually. The 's head was delivered with the help of my digital marketing assistant and fundal pressure. The anterior and posterior shoulders delivered without difficulty, following the rest of the infant. The mouth and nares were bulb suctioned. After a 30 second delay the cord was clamped and cut. The end was handed off to the awaiting math and physics instructor for routine assessment. Placenta was delivered manually without difficulty but was noted to be bilobed and sent for pathology analysis. The uterus was exteriorized and cleared of all clots and debris. Incision was closed with an 0 Vicryl suture in a running locked fashion. Second layer of 1-0 monocryl suture was used in imbricating manner to create excellent closure and hemostasis. The right tube was grasped with a Steven clamp and the underlying mesosalpinx was cauterized and cut with the LigaSure device removing the entire tube and fimbriated end. The same procedure was performed on the opposite side. Both fallopian tubes were passed off for pathology analysis. There was noted to be a nodule or cyst on the posterior aspect of the left ovary. This was removed with the ligasure and sent for pathology analysis. The uterus was returned to the abdomen. The gutters were cleared of all clots and debris. The peritoneum was closed in a pursestring pattern using a 3-0 Vicryl suture. This muscle was reapproximated with a 3-0 Vicryl. The fascia was closed with a stratafix suture. Subcutaneous tissue layer was irrigated then closed using a plain gut suture. The skin was closed with a 4-0 Monocryl subcuticular stitch. The skin was also sealed with surgical glue. The patient tolerated the procedure well sponge lap and needle counts were correct at each tissue closure plane and the patient is now being brought to the recovery room in stable condition Surgical findings: normal uterus, tubes, ovaries. small ovarian cyst on posterior left ovary, removed and sent for pathology Presentation: Vertex Amniotic Fluid Description: Clear Placental Delivery Description: Expressed Placenta Disposition: [facility] Specimen collected: Yes Description of specimen(s) removed: fallopian tubes and ovarian nodule Cord Vessel Description: 3 Vessels Cord Entanglement: None A gender: Female (1 minute): 8 (5 minute): 9 Delayed Cord Clamping: Yes Master Hearth Technician garden labourer: Yes Technical Program Manager: Lucian Ron Tasks completed by warehouse assistant: Closing, Hemostasis: Clamp and Hemostasis: Tie Additional digital marketing assistant?: No Complications Complications: No Multi Select Codes Urinary/Genital Urinary/Genital CPT Codes: 44349 C/S+TL
[2024-04-09] MEDS: Oxytocin 15 Units/NS 250ml 15 UNITS/250 ML IV.SOLN 83 UNITS IV (08:30)
[2024-04-09 08:32] LABS: Syphilis Antibodies Non-reactive
[2024-04-09] MEDS: Senna/Docusate Sodium 1 Tablet PO (09:40)
[2024-04-09] MEDS: Metoprolol(XL)Succ 25 MG Tablet 12.5 MG PO (09:40)
[2024-04-09] MEDS: Ketorolac 30 MG/ML Syringe IV ×3 (09:42→21:29)
[2024-04-09] MEDS: Lactated Ringers 1,000 ML 100 ML IV (11:32)
[2024-04-09 12:02] LABS: Pathology Specimen OB SEE PATHOLOGY REPORT
[2024-04-09] MEDS: 0.9% Saline Lock 10 ML Syringe IV ×2 (18:04→21:29)
[2024-04-09] MEDS: Enoxaparin 40 MG/0.4 ML Syringe SC (20:07)
[2024-04-10] MEDS: Acetaminophen 500 MG Tablet 1000 MG PO ×5 (00:05→23:46)
[2024-04-10 00:06] VITALS: BP 114/51; PULSE 64; RESP 16; TEMP 36.3; O2SAT 99
[2024-04-10] MEDS: 0.9% Saline Lock 10 ML Syringe IV (03:27)
[2024-04-10] MEDS: Ketorolac 30 MG/ML Syringe IV (03:27)
[2024-04-10 03:32] VITALS: BP 123/69; PULSE 63; RESP 16; TEMP 36.5; O2SAT 98
[2024-04-10 06:14] LABS: Hematocrit 26.1 % (37-47); Hemoglobin 8.4 g/dL (12.0-15.0); Mean Corp Hgb Conc 32.2 g/dL (32-36); Mean Corpuscular Hgb 29.1 pg (27.0-32.0); Mean Corpuscular Volume 90.3 fL (81-99); Mean Platelet Vol. 10.6 fl (6.2-12.0); Platelet Count 176 K/mm3 (150-450); RBC Distribution Width CV 13.3 % (11.6-14.6); RBC Distribution Width SD 43.3 fl (35.1-43.9); Red Blood Count 2.89 M/mm3 (4.2-5.4)
[2024-04-10 07:52] VITALS: BP 116/64; PULSE 78; RESP 16; TEMP 36.6; O2SAT 99
--- NOTE | 2024-04-10 09:51 | PN.OBGYN_ITS ---
Subjective Subjective Patient is sitting up in the bedside chair comfortably without complaints. She states that she slept on an off during the night. Lochia is mild and pain is minimal. She would like to stay one more night. Her IV was removed this am. We discussed her anemia this am and she is asymptomatic. Objective Data Objective Data Vital Signs: Vital Signs Temp Pulse Resp BP Pulse Ox O2 Del Method 97.8 F 78 16 116/64 99 Room Air 04/10/24 07:52 04/10/24 07:52 04/10/24 07:52 04/10/24 07:52 04/10/24 07:52 04/10/24 07:52 Oxygen Delivery Method Room Air Weight: 243 lb Body Mass Index (BMI) 34.8 Intake & Output: Intake and Output for Last 24 Hours 04/08/24 04/09/24 04/10/24 23:59 23:59 23:59 Intake Total 2356.67 / 2356.67 Output Total 1071 / 1071 Balance 1285.67 / 1285.67 Lab / Micro Data 04/10/24 06:00 Labs: Laboratory Results - last 24 hr 04/10/24 06:00: WBC 12.0 H, RBC 2.89 L, Hgb 8.4 L, Hct 26.1 L, MCV 90.3, MCH 29.1, MCHC 32.2, RDW Std Deviation 43.3, RDW Coeff of Anand 13.3, Plt Count 176, MPV 10.6 ROS Constitutional Constitutional: Reports systems reviewed and no addt'l complaints, except as documented Cardiovascular Cardiovascular: Denies chest pain, dizziness, dyspnea or irregular heart rhythm Respiratory/Chest Respiratory/Chest: Denies cough, pain on inspiration or shortness of breath at rest Gastrointestinal Gastrointestinal: Denies abdominal pain, nausea or vomiting Genitourinary Genitourinary: Denies burning urination Musculoskeletal Musculoskeletal: Denies muscle cramps, muscle spasms or muscle weakness Neurologic Neurologic: Denies confusion, dizziness, headache(s) or lack of coordination Psychiatric Psychiatric: Denies anxiety, behavioral changes or depression Physical Exam HEENT normocephalic Resp normal respiratory effort and normal air movement GI soft to palpation, non-tender and non-distended Rectal Exam: other Other Details: Incision is clean, dry, and intact no CVA tenderness Extremity normal to inspection General Extremity: edema bilateral (trace ) Assessment & Plan (1) Anemia: (2) Status post section: (3) History of 2 sections: COMMENT: likely desires repeat unless active labor. reviewed TOLAC risks. c/s 04/09/24 (4) Irregular heart beat: COMMENT: metoprolol 12.5mg, released from cardio in past. stable. nl echo last done in 2020 (5) Supervision of high-risk : QUALIFIERS: Trimester: third trimester Qualified Code(s): O09.93 - Supervision of high risk , unspecified, third trimester COMMENT: PRR,, KATIANA 04/16/24, Elijah Castellano Myron (6) : QUALIFIERS: Weeks of gestation: 37 weeks Qualified Code(s): Z 3A.37 - 37 weeks gestation of COMMENT: Neg GBS. discussed genetic & carrier testing-declined. nl anatomy (7) Factor V Leiden: COMMENT: hetero, sister had clot on ocp. reviewed indications and will anticoagulate PLAN: Plan s/p LTCS PPD # 1 1. routine post care 2. breast feeding- support given 3. rh positive 4. rubella immune 5. start PO iron therapy.
[2024-04-10 10:01] VITALS: PULSE 74
[2024-04-10] MEDS: Metoprolol(XL)Succ 25 MG Tablet 12.5 MG PO (10:01)
[2024-04-10] MEDS: Senna/Docusate Sodium 1 Tablet PO (10:03)
[2024-04-10] MEDS: Ibuprofen 600 MG Tablet PO ×3 (10:03→22:24)
[2024-04-10] MEDS: Ferrous Gluconate 324 MG Tablet PO (12:29)
[2024-04-10 14:47] VITALS: BP 131/73; PULSE 88; RESP 15; TEMP 36.8; O2SAT 100
[2024-04-10] MEDS: Enoxaparin 40 MG/0.4 ML Syringe SC (20:01)
[2024-04-10 20:45] VITALS: BP 131/73; PULSE 82; RESP 16; TEMP 36.6; O2SAT 98
[2024-04-11 03:10] VITALS: BP 121/68; PULSE 73; RESP 16; TEMP 36.5; O2SAT 96
[2024-04-11] MEDS: Ibuprofen 600 MG Tablet PO ×2 (04:34→10:10)
[2024-04-11] MEDS: Acetaminophen 500 MG Tablet 1000 MG PO (06:16)
[2024-04-11 08:12] VITALS: BP 117/69; PULSE 81; RESP 16; TEMP 36.7; O2SAT 98
--- NOTE | 2024-04-11 08:13 | PN.OBGYN_ITS ---
Subjective Subjective Patient doing well without complaints. Tolerating PO. Ambulating and voiding without difficulty. Feeding well. Denies chest pain, shortness of breath, calf pain/swelling, fevers, chills, lightheadedness. Objective Data Objective Data Vital Signs: Vital Signs Temp Pulse Resp BP Pulse Ox O2 Del Method 98.1 F 81 16 117/69 98 Room Air 04/11/24 08:12 04/11/24 08:12 04/11/24 08:12 04/11/24 08:12 04/11/24 08:12 04/11/24 08:12 Oxygen Delivery Method Room Air Weight: 243 lb Body Mass Index (BMI) 34.8 Intake & Output: Intake and Output for Last 24 Hours 04/09/24 04/10/24 04/11/24 23:59 23:59 23:59 Intake Total 2356.67 / 2356.67 Output Total 1071 / 1071 Balance 1285.67 / 1285.67 Lab / Micro Data 04/10/24 06:00 Physical Exam HEENT normocephalic Resp normal respiratory effort and normal air movement GI soft to palpation, non-tender and non-distended Rectal Exam: other Other Details: Incision is clean, dry, and intact no CVA tenderness Uterus Palpation: uterus fundus firm (below u) Extremity normal to inspection General Extremity: edema bilateral (trace ) Assessment & Plan (1) Status post section: (2) Supervision of high-risk : QUALIFIERS: Trimester: third trimester Qualified Code(s): O09.93 - Supervision of high risk , unspecified, third trimester COMMENT: PRR,, KATIANA 04/16/24, Elijah Castellano Myron (3) : QUALIFIERS: Weeks of gestation: 37 weeks Qualified Code(s): Z 3A.37 - 37 weeks gestation of COMMENT: Neg GBS. discussed genetic & carrier testing-declined. nl anatomy (4) Factor V Leiden: COMMENT: hetero, sister had clot on ocp. reviewed indications and will anticoagulate PLAN: Plan s/p LTCS PPD # 2 1. routine post care 2. breast feeding- support given 3. rh positive 4. rubella immune 5. d/c home today
--- NOTE | 2024-04-11 08:16 | PCM.DC.SUM ---
Providers Date of Admission: 04/09/24 Primary Care Physician: [facility] Reason For Visit: REPEAT C SECTION Diagnosis Discharge Diagnosis (1) Status post section: Status: Acute Code(s): Z98.891 - History of uterine scar from previous surgery (2) Supervision of high-risk : Status: Acute Code(s): O09.90 - Supervision of high risk , unspecified, unspecified trimester Qualifiers: Trimester: third trimester Qualified Code(s): O09.93 - Supervision of high risk , unspecified, third trimester (3) : Status: Acute Code(s): Z34.90 - Encounter for supervision of normal , unspecified, unspecified trimester Qualifiers: Weeks of gestation: 37 weeks Qualified Code(s): Z3A.37 - 37 weeks gestation of (4) Factor V Leiden: Status: Acute Code(s): D68.51 - Activated protein C resistance Plan s/p LTCS PPD # 2 1. routine post care 2. breast feeding- support given 3. rh positive 4. rubella immune 5. d/c home today Medications at Discharge Home Medications metoprolol tartrate 25 mg tablet 12.5 mg PO DAILY heart arrhythmia 09/01/23 multivitamin no.47-iron fum 27 mg-folate no.1 1 mg-dha 300 mg capsule (PNV-DHA) 1 cap PO DAILY 09/01/23 enoxaparin 40 mg/0.4 mL subcutaneous syringe (Lovenox) 40 mg (0.4 mL) subcut DAILY 6 weeks #16.8 mL 04/09/24 ibuprofen 800 mg tablet 800 mg PO Q8H PRN pain #30 tabs 04/09/24 oxycodone-acetaminophen 5 mg-325 mg tablet (Percocet) 1 tab PO Q4H PRN pain 7 days #20 tabs 04/09/24 ferrous gluconate 324 mg (37.5 mg iron) tablet 324 mg PO DAILY #30 tabs 04/10/24 Hospital Course Operations None Procedures None Summary of Care Provided Hospital Course: at 39 weeks for repeat c/s with routine pp course. Weight / BMI Weight Weight: 243 lb Body Mass Index (BMI) 34.8 ABG / Lab / Microbiology Data 04/10/24 06:00 D/C Instructions Discharge Diet: No restrictions May resume sexual activity in: 4-6 weeks Weight Bearing Status: Full weight bearing Call your doctor if your incision/area has: Continuous Slow Oozing, Sudden Increased Bleeding, Increased Pain/ Swelling, Increased Redness and Foul Smelling Discharge Call your doctor if you observe: Fever of 101 or Higher and Using more than 1 pad per hour Suture Line Care: Avoid Pulling/Pushing and Avoid Pinching/Bending Cleanse incision/area with: Soap & Water and Keep Dressing Clean & Dry DC O2, CPAP, BIPAP Needs Home O2 Discharge instructions: No Please Follow Up With: Jen Curran DO When: Call [phone] to make an appointment for an incision check in 1-2 weeks. Meaningful Use Info Meaningful Use Meaningful Use Diagnoses (Choose all that apply): None applicable Ischemic Stroke Statin Dosing Therapy Reference: STATIN DOSE THERAPY REFERENCE: * Patients > 75 years receive moderate or high dose statin therapy. * Patients 75 years or YOUNGER should receive HIGH intensity statin dose unless contraindicated. You will be required to document reason for non-treatment if statin daily dose does not meet guidelines. HIGH DOSE STATIN THERAPY DAILY Atorvastatin > than or = to 40 mg Rosuvastatin > than or = to 20 mg Amlodipine + Atorvastatin > than or = to 2.5/40 mg Ezetimibe + Simvastatin 10/80 mg Simvastatin 80mg Discharge Plan Admission Admit Date/Time: 04/09/24 05:15 Primary Reason for Your Visit: SECTION Attending Provider: Jen Curran Primary Care Provider: [facility] Discharge Orders/Prescriptions Prescriptions: New enoxaparin [Lovenox] 40 mg/0.4 mL syringe 40 mg subcut DAILY 42 Days Qty: 16.8 0RF ibuprofen 800 mg tablet 800 mg PO Q8H PRN (Reason: pain) Qty: 30 0RF oxycodone-acetaminophen [Percocet] 5-325 mg tablet 1 tab PO Q4H PRN (Reason: pain) 7 Days Qty: 20 0RF Rx Instructions: 1-2 tabs q 4 hrs as needed for pain ferrous gluconate 324 mg (37.5 mg iron) tablet 324 mg PO DAILY Qty: 30 3RF Continued PNV-DHA 27 mg iron-1 mg -300 mg capsule 1 cap PO DAILY metoprolol tartrate 25 mg tablet 12.5 mg PO DAILY Referrals / Follow Up: [facility] [Primary Care Provider] - Disposition Disposition (needs filled in before D/C Order can be placed): Home, Self Care
[2024-04-11 10:10] VITALS: PULSE 75
[2024-04-11] MEDS: Metoprolol(XL)Succ 25 MG Tablet 12.5 MG PO (10:10)
[2024-04-11] MEDS: Senna/Docusate Sodium 1 Tablet PO (10:11)
== END 2024-04-11 11:00 | disposition home or self-care (01) | DRG 784 ==
PROVIDERS: Admitting Provider Obstetrics & Gynecology; Visit Provider Obstetrics & Gynecology
PROC: 0UT70ZZ Resection of Bilateral Fallopian Tubes, Open Approach (ICD-10-PCS; CPT 59514; principal; 2024-04-09 07:00)
DX: O34.211 Maternal care for low transverse scar from previous cesarean delivery (principal); O99.12 Other diseases of the blood and blood-forming organs and certain disorders involving the immune mechanism complicating childbirth; D68.51 Activated protein C resistance; Z37.0 Single live birth; O99.892 Other specified diseases and conditions complicating childbirth; R00.2 Palpitations; O34.83 Maternal care for other abnormalities of pelvic organs, third trimester; N83.8 Other noninflammatory disorders of ovary, fallopian tube and broad ligament; O90.81 Anemia of the puerperium; Z3A.39 39 weeks gestation of pregnancy; Z79.899 Other long term (current) drug therapy; Z87.59 Personal history of other complications of pregnancy, childbirth and the puerperium
CPT/HCPCS: 59025; 59050; 85025; 85027; 86780; 86850; 86900; 86901; 88302; 99221; A4216; G0378; J2405

== ENCOUNTER → 2024-05-21 | Outpatient (CLI) | payer OTHER, SELFPAY ==
[2024-05-21 12:39] LABS: Absolute Lymphocyte Count 2.65 X10^3/uL (0.83-4.51); Basophil# 0.02 X10^3/uL; Basophil% 0.2 % (0-1); Eosinophil# 0.05 X10^3/uL; Eosinophils% 0.6 % (0-5); Hematocrit 38.2 % (37-47); Hemoglobin 12.3 g/dL (12.0-15.0); Lymphocyte # 2.65 X10^3/ul (0.83-4.51); Lymphocyte % 32.8 % (19-41); Mean Corp Hgb Conc 32.2 g/dL (32-36); Mean Corpuscular Hgb 29.5 pg (27.0-32.0); Mean Corpuscular Volume 91.6 fL (81-99); Mean Platelet Vol. 10.7 fl (6.2-12.0); Monocyte# 0.29 X10^3/uL; Monocyte% 3.6 % (0-10); NRBC Flagged by Analyzer 0 % (0-5); Neutrophil # 5.03 X10^3/uL (2.7-7.7); Neutrophil % 62.4 % (47-70); Platelet Count 254 K/mm3 (150-450); RBC Distribution Width CV 13.8 % (11.6-14.6); RBC Distribution Width SD 46.8 fl (35.1-43.9); Red Blood Count 4.17 M/mm3 (4.2-5.4); White Blood Count 8.1 K/mm3 (4.4-11.0)
[2024-05-25 14:08] LABS: HPV APTIMA, High Risk Negative (Negative)
== END | disposition home or self-care (01) ==
LOC: BWCLAB 11:17
PROVIDERS: Referring Provider Nurse Practitioner Women's Health; Visit Provider Nurse Practitioner Women's Health
DX: D64.9 Anemia, unspecified (principal); Z12.4 Encounter for screening for malignant neoplasm of cervix
CPT/HCPCS: 36415; 85025; 87624; 88175; G0145